=== PATIENT | female | born 1975 | race Caucasian/White ===

== ENCOUNTER 2016-07-04 10:51 | Day surgery (SDC) | payer OTHER ==
[~2016-07-04] VITALS: Ht 149.9 cm; Wt 72.7 kg
[2016-07-04 11:50] LABS: BASOPHILS 0.3 % (0.0-2.0); EOSINOPHILS 3.6 % (0-7); HEMATOCRIT 39.9 % (36.0-48.0); HEMOGLOBIN 13.5 g/dL (12-16); IMMATURE GRANULOCYTES 0.1 % (0-5); LYMPHOCYTES 26.4 % (15-50); MCH 29.6 pg (26.0-34.0); MCHC 33.8 g/dL (31.0-37.0); MCV 87.5 fL (80.0-100.0); MEAN PLATELET VOLUME 9.5 fL (7.4-10.4); MONOCYTES 11.9 % (2-11); NEUTROPHILS 57.7 % (40-80); PLATELET COUNT 233 10x3/uL (130-400); RBC 4.56 10x6/uL (4.00-5.40); RDW 13.3 % (11.5-14.5); WBC 7.5 10x3/uL (4.8-10.8)
[2016-07-04 12:00] LABS: CALC OSMOLALITY 279 mosm/kg (275-300); CARBON DIOXIDE 25.1 mmol/L (21.0-32.0); CHLORIDE - SERUM 103 mmol/L (98-107); CREATININE - SERUM 0.7 mg/dL (0.6-1.3); POTASSIUM - SERUM 4.6 mmol/L (3.5-5.1); SODIUM 138 mmol/L (136-145); UREA NITROGEN 10 mg/dL (7-18); eGFR NON AFRICAN AMERICAN > 90 mL/min (90-120)
[2016-07-04 12:03] LABS: GLUCOSE 181 mg/dL (74-106)
[2016-07-04] MEDS ORDERED: VENTOLIN HFA18 GM INH (12:45)
[2016-07-04] MEDS ORDERED: GLUCOPHAGE500 MG PO (12:47)
[2016-07-04] MEDS ORDERED: PREVACID30 MG PO (12:49)
[2016-07-04 13:02] VITALS: BP 108/80; Ht 149.9 cm; Wt 72.7 kg
[2016-07-04] MEDS ORDERED: OMEPRAZOLE40 MG PO (13:48)
--- NOTE | 2016-07-04 15:20 | NUR ---
DISCHARGE INSTRUCTIONS GIVEN. DR IRENE HAS SEEN. DISCHARGED HOME VIA .
--- NOTE | 2016-07-05 20:05 | OP ---
PATIENT NAME: MODESTA CUENCA MEDICAL RECORD: [id number] :77 LOCATION:[facility] ADMISSION DATE: SURGEON: CHANDANA IRENE MD DATE OF OPERATION: 07/04/2016 PROCEDURE: EGD with biopsy and esophageal balloon dilatation. REFERRING PHYSICIAN: Cadence Dunn MD INDICATIONS: Ms. Cuenca is a very pleasant 40-year-old woman with a history of asthma and diabetes mellitus who has had symptoms of dysphagia to solid foods, heartburn and nausea, which has been present for over several years. She takes pantoprazole 20 mg daily with moderate relief of her symptoms. She presents for outpatient EGD. PREMEDICATIONS: Total IV anesthesia (propofol 250). INSTRUMENT: Esophageal balloon dilator 54-60 Gibraltarian. PROCEDURE AND FINDINGS: After receiving informed consent, Ms. Cuenca' posterior pharynx was anesthetized with Cetacaine spray. She was placed in left lateral decubitus position and sedated as per anesthesia. After achieving an adequate level of sedation, gastroscope was introduced per orally and advanced into the duodenum without difficulty. The esophageal mucosa was without erythema, ulcers, or masses. At the GE junction was a wide open nonobstructive Schatzki's ring. Small sliding type hiatal hernia is present. Gastric mucosa was notable for mild prepyloric and antral erythema and antral biopsies were obtained to rule out Helicobacter pylori. No lesions were seen in the body of the stomach or in the cardia or fundus. Pylorus was patent and competent. In the duodenal bulb, was a superficial ulcer with stigmata of recent bleeding. Second portion of duodenal mucosa was without erythema or ulcers. Biopsies were taken from the second portion of the duodenum to rule out celiac disease. The gastroscope was then withdrawn to the stomach. Esophageal balloon dilator was then introduced through the gastroscope and the balloon was positioned midway across the distal esophagus insulated to a 60-Gibraltarian size, held in place on the appropriate PSI for 60 seconds, then deflated with good results. Balloon was withdrawn and then biopsies were taken from the mid and distal esophagus. Gastroscope was then withdrawn. Ms. Cuenca tolerated the procedure well, no immediate complications. ASSESSMENT: 1. Small sliding type hiatal hernia. 2. Esophageal Schatzki's ring status post esophageal balloon dilatation. 3. Mild gastritis. 4. Small duodenal ulcer. RECOMMENDATIONS: 1. Follow up histopathology. 2. Avoid nonsteroidal anti-inflammatory drugs. 3. Omeprazole 40 mg p.o. daily. 4. Reflux precautions. 5. Colonoscopy as scheduled. TRANSINT:[id number] Voice Confirmation ID: [id number] DOCUMENT ID: [id number] OPERATIVE REPORT [id number] MODESTA CUENCA TERRI MD at 2005 CC: CADENCE DUNN MD [id number] DICTATION DATE: 07/04/16 1347 RECOVERY RN: 07/04/16 1400 [facility] 07/04/16 [id number] [place] [address]
== END 2016-07-04 15:20 | disposition home or self-care (01) ==
LOC: D.OPS 10:51
PROVIDERS: Anesthesiology
DX: R13.10 Dysphagia, unspecified (principal); K21.9 Gastro-esophageal reflux disease without esophagitis; R11.2 Nausea with vomiting, unspecified; F17.200 Nicotine dependence, unspecified, uncomplicated; E11.9 Type 2 diabetes mellitus without complications; J45.909 Unspecified asthma, uncomplicated; K22.2 Esophageal obstruction; K44.9 Diaphragmatic hernia without obstruction or gangrene; K29.70 Gastritis, unspecified, without bleeding; K26.9 Duodenal ulcer, unspecified as acute or chronic, without hemorrhage or perforation

== ENCOUNTER 2016-08-01 10:30 | Day surgery (SDC) | payer OTHER ==
[~2016-08-01] VITALS: Ht 149.9 cm; Wt 72.7 kg
[~2016-08-01 10:30] MED LIST: GLUCOPHAGE500 MG PO; OMEPRAZOLE40 MG PO; PREVACID30 MG PO; VENTOLIN HFA18 GM INH
[2016-08-01 11:42] VITALS: BP 107/79; Ht 149.9 cm; Wt 72.7 kg
[2016-08-01 11:51] LABS: BASOPHILS 0.2 % (0.0-2.0); EOSINOPHILS 2.6 % (0-7); HEMATOCRIT 40.9 % (36.0-48.0); HEMOGLOBIN 13.9 g/dL (12-16); IMMATURE GRANULOCYTES 0.1 % (0-5); LYMPHOCYTES 23.2 % (15-50); MCH 29.8 pg (26.0-34.0); MCV 87.6 fL (80.0-100.0); MEAN PLATELET VOLUME 9.5 fL (7.4-10.4); MONOCYTES 8.4 % (2-11); NEUTROPHILS 65.5 % (40-80); PLATELET COUNT 232 10x3/uL (130-400); RBC 4.67 10x6/uL (4.00-5.40); RDW 12.8 % (11.5-14.5)
[2016-08-01 11:59] LABS: CALC OSMOLALITY 272 mosm/kg (275-300); CALCIUM 8.8 mg/dL (8.5-10.1); CHLORIDE - SERUM 103 mmol/L (98-107); CREATININE - SERUM 0.6 mg/dL (0.6-1.3); GLUCOSE 155 mg/dL (74-106); POTASSIUM - SERUM 4.3 mmol/L (3.5-5.1); SODIUM 136 mmol/L (136-145); UREA NITROGEN 7 mg/dL (7-18); eGFR NON AFRICAN AMERICAN > 90 mL/min (90-120)
--- NOTE | 2016-08-01 15:57 | NUR ---
6522 IV DC WITH CATHER TIP INTACT WAITING ON DR IRENE
--- NOTE | 2016-08-07 13:54 | OP ---
PATIENT NAME: MODESTA CUENCA MEDICAL RECORD: [id number] :77 LOCATION:[facility] ADMISSION DATE: SURGEON: CHANDANA IRENE MD DATE OF OPERATION: 08/01/2016 PROCEDURE: Colonoscopy with ileoscopy, biopsy and polypectomy. REFERRING PHYSICIAN: Foreign Dunn MD. INDICATIONS: Ms. Cuenca is a very pleasant 40-year-old woman who has had symptoms of dysphagia, chronic constipation and right-sided abdominal pain. She had an EGD on 07/04/2016 with finding showing small sliding type hiatal hernia, esophageal Schatzki's ring (dilated up to a 60-Irish), mild gastritis and small duodenal ulcer. Esophageal biopsies showed chronic minimal esophagitis consistent with reflux type injury, antral biopsies were negative for Helicobacter pylori and duodenal biopsies showed mild duodenitis. She had a CT of the chest, abdomen and pelvis with IV contrast on 11/06/2015 that showed no evidence of acute traumatic injury to the chest, abdomen, or pelvis, fatty infiltration of the liver and a 1-cm rounded right upper lobe pulmonary lesion. Repeat CT scan of the abdomen and pelvis without contrast on 02/12/2016 shows status post cholecystectomy, a right adnexal cyst measuring 4.4 cm in diameter and nonvisualization of the appendix with no pericecal inflammation. She presents for outpatient colonoscopy. PREMEDICATIONS: Total IV anesthesia, propofol 400 mg. INSTRUMENT: Olympus video colonoscope. PROCEDURE AND FINDINGS: After receiving informed consent, Ms. Cuenca was placed in left lateral decubitus position and sedated as per anesthesia. After achieving an adequate level of sedation, digital rectal exam was performed that showed no external hemorrhoidal tags, fissures or fistulas, normal sphincter tone, no palpable rectal masses. The colonoscope was introduced per rectally and advanced to the cecum without difficulty. The cecum, IC valve and the appendiceal orifice were identified. Within the cecum was a 0.5-cm sessile polyp removed with hot biopsy forcep technique. The terminal ileum was intubated and the distal small bowel mucosa was without erythema or ulcers. As the colonoscope was withdrawn, careful inspection was made of the darling of the colon. The IC valve and the ascending colonic mucosa was notable for mild patchy erythema and biopsies were taken from the valve in the ascending colon. In the rectum was a diminutive 0.25 cm sessile polyp removed with biopsy forcep technique. Retroflexion in rectum showed no internal hemorrhoids. A good prep was present. Withdrawal time was 10 minutes. Ms. Cuenca tolerated the procedure well, no immediate complications. ASSESSMENT: 1. Normal-appearing terminal ileum. 2. Small cecal polyp status post polypectomy. 3. Minimal nonspecific erythema involving the IC valve and ascending colon, status post biopsy, rule out cholangitis colitis. 4. Diminutive rectal polyp. 5. Right-sided abdominal pain, possibly related to an ovarian cyst. OPERATIVE REPORT [id number] MODESTA CUENCA RECOMMENDATIONS: 1. Follow up histopathology. 2. Avoid aspirin, nonsteroidal anti-inflammatory drugs and FRANK-2 inhibitors 14 days post polypectomy. 3. High fiber diet. 4. MiraLax p.r.n. 5. Stool softeners. 6. Surveillance colonoscopy pending nature of polyp histopathology. 7. Recommend follow up with [employer] regarding her right lower quadrant pain. TRANSINT:[id number] Voice Confirmation ID: [id number] DOCUMENT ID: [id number] CHANDANA IRENE MD at 1354 CC: FOREIGN DUNN MD [id number] DICTATION DATE: 08/01/16 1347 SERVER SOFTWARE ENGINEER: 08/01/16 1827 [facility] 08/01/16 [id number] [place] [address]
== END 2016-08-01 15:30 | disposition home or self-care (01) ==
LOC: D.OPS 10:30
PROVIDERS: Anesthesiology
DX: K63.5 Polyp of colon (principal); K62.1 Rectal polyp; K52.9 Noninfective gastroenteritis and colitis, unspecified; K59.09 Other constipation; K44.9 Diaphragmatic hernia without obstruction or gangrene; K29.70 Gastritis, unspecified, without bleeding; K29.80 Duodenitis without bleeding; K21.0 Gastro-esophageal reflux disease with esophagitis

== ENCOUNTER → 2017-08-19 09:58 | Outpatient (CLI) | payer MEDICAID ==
[2016-08-01 11:42] VITALS: BMI 32.4
== END | disposition home or self-care (01) ==
LOC: D.RAD 08-18 08:00
DX: R10.9 Unspecified abdominal pain (principal); R13.10 Dysphagia, unspecified; R11.0 Nausea; R12 Heartburn

== ENCOUNTER → 2017-10-03 11:57 | Outpatient (CLI) | payer MEDICAID ==
[2016-08-01 11:42] VITALS: BMI 32.4
== END | disposition home or self-care (01) ==
LOC: D.NM 08:30
DX: R10.9 Unspecified abdominal pain (principal); R11.2 Nausea with vomiting, unspecified; E11.9 Type 2 diabetes mellitus without complications

== ENCOUNTER → 2017-10-31 07:58 | Outpatient (CLI) | payer MEDICAID ==
[2016-08-01 11:42] VITALS: BMI 32.4
== END | disposition home or self-care (01) ==
LOC: D.CT 07:58
DX: R10.9 Unspecified abdominal pain (principal); D73.89 Other diseases of spleen

== ENCOUNTER 2018-01-07 08:15 | Outpatient (CLI) | payer MEDICAID ==
[~2018-01-07] VITALS: Ht 149.9 cm; Wt 72.7 kg
[2018-01-07 09:03] LABS: BASOPHILS 0.2 % (0-2); EOSINOPHILS 2.2 % (0-7); HEMOGLOBIN 12.4 g/dL (12-16); IMMATURE GRANULOCYTES 0.1 % (0-5); LYMPHOCYTES 20.9 % (15-50); MCH 28.3 pg (26.0-34.0); MCHC 33.5 g/dL (31.0-37.0); MCV 84.5 fL (80.0-100.0); MEAN PLATELET VOLUME 9.1 fL (7.4-10.4); MONOCYTES 11.1 % (2-11); NEUTROPHILS 65.5 % (40-80); PLATELET COUNT 257 10x3/uL (130-400); RBC 4.38 10x6/uL (4.00-5.40); RDW 13.9 % (11.5-14.5); WBC 8.4 10x3/uL (4.8-10.8)
[2018-01-07 09:09] LABS: APTT 25.7 SECONDS (22.8-39.4); INR 1.11 (0.85-1.17); PROTIME 13.9 SECONDS (11.6-15.0)
[2018-01-07 09:13] LABS: CALC OSMOLALITY 274 mosm/kg (275-300); CALCIUM 8.6 mg/dL (8.5-10.1); CARBON DIOXIDE 25.6 mmol/L (21.0-32.0); CHLORIDE - SERUM 103 mmol/L (98-107); CREATININE - SERUM 0.7 mg/dL (0.6-1.3); GLUCOSE 194 mg/dL (74-106); POTASSIUM - SERUM 3.9 mmol/L (3.5-5.1); SODIUM 136 mmol/L (136-145); UREA NITROGEN 8 mg/dL (7-18); eGFR NON AFRICAN AMERICAN > 90 mL/min (90-120)
[2018-01-07] MEDS ORDERED: ZOLOFT50 MG PO (10:15)
[2018-01-07] MEDS ORDERED: NEURONTIN 300300 MG PO (10:16)
[2018-01-07 10:29] VITALS: BP 111/74; Ht 149.9 cm; Wt 72.7 kg
== END 2018-01-07 16:00 | disposition home or self-care (01) ==
LOC: D.SP 08:15
PROVIDERS: Specialist
DX: K76.0 Fatty (change of) liver, not elsewhere classified (principal); Z01.812 Encounter for preprocedural laboratory examination

== ENCOUNTER → 2019-04-20 12:29 | Outpatient (CLI) | payer MEDICAID ==
[~2019-04-20 12:29] MED LIST changes: +ADVAIR 250/501 DISK INH; +BAYER CHEWABLE81 MG PO; +CLARITIN 10 MG10 MG PO; +CYMBALTA30 MG PO; +FUROSEMIDE20 MG PO; +K-TAB10 MEQ PO; +LIPITOR20 MG PO; +NEURONTIN 300300 MG PO; +PLAVIX75 MG PO; +TOPROL XL50 MG PO; +ZOLOFT50 MG PO
--- NOTE | 2019-04-22 12:49 | ST ---
PATIENT:MODESTA ESTRADA MEDICAL RECORD: [id number] SEX: F LOCATION:[facility] ORDER #: ADMISSION DATE: 04/20/19 AGE OF PATIENT: 43 REFERRING PHYSICIAN: INTERPRETING PHYSICIAN: CAN ROCHE MD DATE OF SERVICE: 04/20/2019 INDICATION: Angina, shortness of breath, COPD. TECHNIQUE: She was exercised on standard Lexiscan protocol with 33 mCi of sestamibi injected at peak stress, 11 mCi used previously for rest images. FINDINGS: Gated SPECT reveals a preserved ejection fraction at 60% with good wall motion and thickening and brightening throughout all segments. SPECT imaging Cardiolite was used as myocardial perfusion agent. There is reversible ischemia inferiorly, apically, and anteriorly. The inferior defect includes the basal, mid, apical segments. This is mild reversibility. The anterior segments includes the basal, mid, apical and anterior segments as well as the apex itself. This is moderate reversibility. The amount of myocardium involved between the 2 defects is quite large. OVERALL IMPRESSION: This is a high risk abnormal nuclear stress test with large amount of myocardium involved with reversible ischemia anteriorly, inferiorly and apically suggestive of multivessel coronary artery disease. TRANSINT:[id number] Voice Confirmation ID: [id number] DOCUMENT ID: [id number] CAN ROCHE MD at 1249 CC: ROSAS GLASGOW [id number] DICTATION DATE: 04/21/19 1626 BRANCH LENDING MANAGER: 04/22/19 0624 [facility] CLI 04/20/19 [id number] [place] [address]
== END | disposition home or self-care (01) ==
LOC: D.HCCARDIO 12:29
PROVIDERS: ATTEND Internal Medicine Interventional Cardiology
DX: I20.9 Angina pectoris, unspecified (principal)

== ENCOUNTER 2019-04-30 09:45 | Outpatient (CLI) | payer MEDICAID ==
[~2019-04-30] VITALS: Ht 149.9 cm; Wt 70.5 kg
--- NOTE | ~2019-04-30 | HEMODYNAMI ---
PATIENT:MODESTA ESTRADA MEDICAL RECORD: [id number] : 77 LOCATION:DRomanCAT ADMISSION DATE: 04/30/19 Generatedon:04/30/201914:19 Patient name: MODESTA ESTRADA Patient #: [id number] SSN: : 1975 Date of study: 04/30/2019 Page: Of Hemodynamic Procedure Report Patient Data Patient Demographics Procedure consent was obtained First Name: MODESTA Gender: Female Last Name: NATALIE : 1975 [facility] Initial: ARELIS Age: 43 year(s) Patient #: [id number] Race: Unknown Additional ID: [id number] Contact details Address: [address] [place] [address] State: [place] City: [place] Zip code: [address] Past Medical History Allergies Allergen Reaction Date Comments Reported Amoxicillin 04/30/2019 Admission Admission Data Admission Date: 04/30/2019 Admission Time: 9:45 Arrival Date: 04/30/2019 Arrival Time: 0:00 Height (in.): 59 BSA: 1.65 (m2) Height (cm.): 149.86 BMI: 31.17 (kg/m2) Weight (lbs.): 154.32 Weight (kg.): 70 Lab Results Lab Result Date: 04/30/2019 Lab Result Time: 0:00 Biochemistry Name Units Result Min Max BUN mg/dl 15 --(--*-)-- 7 18 Creatinine mg/dl 0.8 --(-*--)-- 0.6 1.3 eGFR ml/min 82.89067 -*(----)-- 90 120 NONAFRICAN CBC Name Units Result Min Max Hematocrit % 41.5 -*(----)-- 42 54 Hemoglobin g/dl 14.1 --(*---)-- 13.5 17.5 Procedure Procedure Types Cath Procedure Diagnostic Procedure [facility] w/Coronaries FFR/IVUS FFR Initial FFR Additional Sedation Charges Moderate Sedation up to 15 minutes PCI Procedure Coronary Stent Coronary Stent Initial Coronary Stent Additional Procedure Description Procedure Date Procedure Date: 04/30/2019 Procedure Start Time: 13:48 Procedure End Time: 14:16 Procedure Staff Name Function Gordon Chase MD Performing Physician Nano Small RT Monitor Betty Martinez RT Scrub Randell Campuzano RN Nurse Procedure Data Cath Procedure Fluoroscopy Diagnostic fluoroscopy Total fluoroscopy Time: 8.2 time: 8.2 min min Diagnostic fluoroscopy Total fluoroscopy dose: 433 dose: 433 mGy mGy Contrast Material Contrast Material Type Amount (ml) Isovue 300 115 Entry Location Entry Primary Successful Side Size Upsize Upsize Entry Closure Olivo ccessful Closure Location (Fr) 1 (Fr) 2 (Fr) Remarks Device Remarks Femoral Right 6 Fr Mechanical artery Short Compression Estimated blood loss: 10 ml Diagnostic catheters Device Type Used For End Catheter Placement DIAGNOSTIC [place] 110cm 5 Procedure Fr catheter ([id number]) Procedure Complications No complications Procedure Medications Medication Administration Route Dosage Oxygen etCO2 Nasal cannula 2 l/min Lidocaine 2% added to field 20 Heparin Flush Bag added to field 2 bags (1000units/500ml NS) 0.9% NaCl I.V. 100 ml/hr Versed I.V. 2 mg Fentanyl I.V. 100 mcg Versed I.V. 2 mg Fentanyl I.V. 100 mcg Heparin Bolus I.V. 4000 units Integrilin (Bolus I.V. 6.2 ml 2mg/ml) Plavix P.O. 600 mg Hemodynamics Rest BSA: 1.65 (m2) HGB: 14.1 (g/dl) O2 Consumption: Estimated: 169.42 (ml/min) O2 Co nsumption indexed: Estimated:102.68 (ml/min/m) Heart Rate: 75 (bpm) Snapshots Pre Cath Intra NCS Post Cath Vital Signs Time Heart Resp SPO2 etCO2 NIBP Rhythm Pain Sedation Rate (ipm) (%) (mmHg) (mmHg) Status Level (bpm) 13:39:13 76 20 96 35.5 105/71(90) NSR 0 (11) 10(A) , No pain 13:43:19 75 24 97 37.1 104/74(88) NSR 0 (11) 10(A) , No pain 13:47:25 77 14 96 36.3 109/74(90) NSR 0 (11) 10(A) , No pain 13:51:37 84 17 96 37.8 90/59(79) NSR 0 (11) 9(A) , No pain 13:55:38 85 18 94 38.6 107/65(79) NSR 0 (11) 9(A) , No pain 13:59:45 95 28 96 37.9 99/63(82) NSR 0 (11) 9(A) , No pain 14:03:48 83 18 94 39.3 104/66(76) NSR 0 (11) 9(A) , No pain 14:07:54 82 14 94 39.3 101/67(79) NSR 0 (11) 9(A) , No pain 14:12:00 82 15 94 40.8 106/66(85) NSR 0 (11) 9(A) , No pain 14:16:07 81 19 95 39.3 104/68(84) NSR 0 (11) 10(A) , No pain Medications Time Medication Route Dose Verified Delivered Reason Notes Effectiveness by by 13:38:21 Oxygen etCO2 2 Gordon Buffie used for Nasal l/min Rena Campuzano RN procedure cannula 13:38:31 Lidocaine 2% added 20ml Gordon Gordon for local to vial Rena Chase MD anesthetic field 13:38:37 Heparin Flush added 2 Gordno Gordon used for Bag to bags Rena Chase MD procedure (1000units/500ml field NS) 13:38:46 0.9% NaCl I.V. 100 Gordon Buffie Per physician ml/hr Rena Campuzano RN 13:46:54 Versed I.V. 2 mg Gordon Krausie for sedation Rena Campuzano RN 13:47:00 Fentanyl I.V. 100 Gordon Buffie for sedation mcg Rena Campuzano RN 13:57:11 Versed I.V. 2 mg Gordon Buffie for sedation Rena Campuzano RN 13:57:18 Fentanyl I.V. 100 Gordon Buffie for sedation mcg Rena Campuzano RN 14:01:39 Heparin Bolus I.V. 4000 Gordon Buffie for units Rena Campuzano RN anticoagulation 14:03:49 Integrilin I.V. 6.2 Gordon Krausie for waste d (Bolus 2mg/ml) ml eRna Campuzano RN antiplatelet 3.8 ml therapy of vial 14:15:51 Plavix P.O. 600 Gordon Mejias for mg Rena Campuzano RN antiplatelet therapy Procedure Log Time Note 13:13:47 Informed consent obtained and on chart 13:14:05 Randell Campuzano RN sent for patient. Start room use. 13:14:07 Procedure Status Elective Heart Cath (OP). 13:14:08 Time tracking: Regular hours (M-F 7:00 - 5:00) 13:14:12 Plan of Care:Hemodynamics will remain stable., Cardiac rhythm will remain stable., Comfort level will be maintained., Respiratory function will remain adequate., Patient/ family verbilizes understanding of procedure., Procedure tolerated without complication., Recovers from procedure without complications.. 13:14:21 H&P Date Dictated: 04/14/2019 Within 30 days and on chart., H&P Addendum completed by physician on day of procedure. (MUST COMPLETE FOR ALL OUTPATIENTS). 13:20:59 Patient allergic to Amoxicillin 13:21:55 Patient Weight : 154.32 lbs 13:22:15 Patient Height : 59 inches 13:22:20 Arrival Date: 04/30/2019 12:00:00 AM 13:25:50 ACC Patient presents with Stable Angina CCS Anginal Class 3--Marked limitation of physical activity, angina occurs with ordinary activity.. 13:25:52 ACCPatient has been prescribed/administered the following anti-anginal medication within the last 2 weeks: Beta Stephanie 13:26:19 Patient received from Pre/Post Procedure Room to CCL 1 Alert and oriented. Tansferred to table in Supine position. 13:26:20 Warm blankets applied, and clotilde hugger turned on for patient comfort. 13:26:21 Correct patient and procedure confirmed by team. 13:26:22 ECG and BP/O2 sat monitors applied to patient. 13:26:48 Pre-procedure instructions explained to patient. 13:26:48 Pre-op teaching completed and patient verbalized understanding. 13:26:50 Family in patients room. 13:26:53 Patient NPO since Midnight. 13:26:55 Is the patient allergic to Iodine/contrast media? No. 13:27:03 Is patient on blood thinner?No 13:27:05 Patient diabetic? Yes. 13:27:07 If diabetic: On Metformin? Yes 13:27:13 If on Metformin: Last Dose? 04/28/2019 13:27:16 Patient not . Patient has had tubal. 13:27:22 Previous problem with sedation/anesthesia? No ? 13:27:24 Snore? Yes 13:27:25 Sleep apnea? No 13:27:26 Deviated septum? No 13:27:27 Opens mouth fully? Yes 13:27:28 Sticks out tongue? Yes 13:27:33 Airway obstruction? Yes ASTHMA, COPD 13:27:36 Dentures? No ? 13:38:11 Vital chart was started 13:38:21 Oxygen 2 l/min etCO2 Nasal cannula was administered by Randell Campuzano RN; used for procedure; Verbal order read back and verified. 13:38:31 Lidocaine 2% 20ml vial added to field was administered by Gordon Chase MD; for local anesthetic; Verbal order read back and verified. 13:38:37 Heparin Flush Bag (1000units/500ml NS) 2 bags added to field was administered by Gordon Chase MD; used for procedure; Verbal order read back and verified. 13:38:39 Baseline sample Acquired. 13:38:42 Rhythm: sinus rhythm 13:38:43 Full Disclosure recording started 13:38:46 0.9% NaCl 100 ml/hr I.V. was administered by Randell Campuzano RN; Per physician; Verbal order read back and verified. 13:38:48 Modified Candelario's test Ulnar < 7 seconds 13:38:51 Patient pain scale 0/10 ?. 13:39:09 IV patent on arrival in right antecubital with 0.9% NaCl at [facility]. 13:39:41 Lab Result : BUN 15 mg/dl 13:39:41 Lab Result : Creatinine 0.8 mg/dl 13:39:41 Lab Result : eGFR NONAFRICAN 82.88959 ml/min 13:39:41 Lab Result : Hemoglobin 14.1 g/dl 13:39:41 Lab Result : Hematocrit 41.5 % 13:40:12 Lab results completed and on chart. 13:40:26 Stress Test: yes; abnormal MULTIVESSEL 13:40:32 Risk of Mortality: .2 13:40:35 Risk of blood transfusion: .2 13:40:39 Risk of CYNDEE: .6 13:41:04 Right Radial & Right Groin area was prepped with chlora-prep and draped in sterile fashion 13:41:05 Alarms reviewed by R. N. 13:41:06 Sharps counted by scrub and verified by R.N. 13:41:09 Use device set Radial Dx or PCI 13:41:13 ACIST Syringe (24805) opened to sterile field. 13:41:15 Bag Decanter (2002S) opened to sterile field. 13:41:16 ACIST Hand Control (89193) opened to sterile field. 13:41:16 ACIST Manifold (31260) opened to sterile field. 13:41:16 Tegaderm 4 x 4 (1626W) opened to sterile field. 13:41:21 Medline Cath Pack ([id number]) opened to sterile field. 13:41:23 MBrace Wrist Support ([id number]) opened to sterile field. 13:41:25 EMERALD Guide Wire (776-869) opened to sterile field. 13:41:27 SHEATH 6FR RAIN ([id number]) opened to sterile field. 13:45:51 --------ALL STOP TIME OUT------ 13:45:51 Final Timeout: patient, procedure, and site verified with staff and physician. All members of the team are in agreement. 13:45:54 Right Radial & Right Groin site verified by team. 13:45:57 Fire Safety Assessment: A--An alcohol-based skin anteseptic being used preoperatively., C--Open oxygen or nitrous oxide is being used., D--An ESU, laser, or fiber-optic light is being used. 13:46:00 Physical assessment completed. ASA score P 2 - A patient with mild systemic disease as per Gordon Chase MD. 13:46:03 2) 60-89 Mildly reduced kidney function, and other findings (as for stage 1) point to kidney disease. 13:46:07 Maximum allowable contrast dose (3.7 X eGFR X 0.75)230 ml. 13:46:11 Sedation plan: IV Moderate Sedation Medication:Versed, Fentanyl 13:46:52 Zero performed for pressure channel P1 13:46:54 Versed 2 mg I.V. was administered by Randell Campuzano RN; for sedation; Verbal order read back and verified. 13:47:00 Fentanyl 100 mcg I.V. was administered by Randell Campuzano RN; for sedation; Verbal order read back and verified. 13:48:14 Procedure started. 13:48:23 Local anesthetic to right radial artery with Lidocaine 2% by Gordon Chase MD.INITIAL ACCESS ONLY 13:49:38 A 6 Fr Short sheath was inserted into the Right Femoral artery 13:49:47 A DIAGNOSTIC [place] 110cm 5 Fr catheter ([id number]) was advanced over the wire and used for Procedure. 13:50:22 LV gram done using DAWSON 13:50:25 Injector settings: Ml/sec: 5, Volume: 15, 13:51:04 EF : 55 % 13:51:54 RCA angiography performed. 13:52:11 LCA angiography performed. 13:52:15 Catheter exchanged over wire. 13:52:30 INFLATOR Merit BasixCompak (NF5135) opened to sterile field. 13:52:37 ACCDominant side:Co-Dominant 13:52:59 Ascendant Dxrata Plus pressure wire (85786M) opened to sterile field. 13:53:06 GUIDE 6FR AR 2.0 catheter ([id number]) opened to sterile field. 13:53:20 GUIDE 6FR XBLAD 3.5 catheter ([id number]) opened to sterile field. 13:53:36 6 Fr AR 2 guide catheter was inserted over the wire 13:54:55 FFR/IFR wire advanced. 13:55:05 Wire advanced across lesion. 13:55:46 mRCA lesion measured at .95 with IFR 13:55:57 Wire removed. 13:55:57 Guide catheter removed. 13:56:50 6 Fr XBLAD 3.5 guide catheter was inserted over the wire 13:57:11 Versed 2 mg I.V. was administered by Randell Campuzano RN; for sedation; Verbal order read back and verified. 13:57:18 Fentanyl 100 mcg I.V. was administered by Randell Campuzano RN; for sedation; Verbal order read back and verified. 13:59:22 Guide Catheter removed. unable to cannulate vessel. 13:59:31 GUIDE 6FR EBU 3.0 catheter ([id number]) opened to sterile field. 13:59:45 6 Fr EBU 3 guide catheter was inserted over the wire 14:01:39 Heparin Bolus 4000 units I.V. was administered by Randell Campuzano RN; for anticoagulation; Verbal order read back and verified. 14:03:49 Integrilin (Bolus 2mg/ml) 6.2 ml I.V. was administered by Randell Campuzano RN; for antiplatelet therapy; wasted 3.8 ml of vial Verbal order read back and verified. 14:03:56 FFR/IFR wire advanced. 14:03:59 mLAD lesion measured at .88 with IFR 14:04:09 Pre PCI Site: [place] mLAD has 80% stenosis. 14:04:45 Place stent Inflation Number: 1 A MARIELENA RX 3.0 x 12 stent ([id number]) was prepped and advanced across the Mid LAD . The stent was deployed at 15 CARMEN for 0:00 (min:sec) . 14:05:02 Stent catheter was removed intact over wire. 14:05:03 Wire removed. 14:05:10 CHOICE PT Extra Support 182cm wire ([id number]) opened to sterile field. 14:05:18 CHOICE ES 182 wire advanced. 14:06:28 Wire advanced across DIAG LESION 14:07:28 Pre PCI Site: [place] Diag1 has 90% stenosis. 14:08:22 Inflate balloon Inflation number: 1 A EUPHORA 2.5 x 12 Balloon ([id number]) was prepped and advanced across the 1st Diag , then inflated to 17 CARMEN for 0:00 (min:sec) . 14:08:34 Balloon removed over the wire. 14:10:10 Place stent Inflation Number: 2 A MARIELENA RX 3.0 x 08 stent ([id number]) was prepped and advanced across the 1st Diag . The stent was deployed at 11 CARMEN for 0:00 (min:sec) . 14:10:20 Stent catheter was removed intact over wire. 14:11:04 Wire removed. 14:11:05 Guide catheter removed. 14:11:58 ZEPHYR REGULAR TR BAND (413123) opened to sterile field. 14:12:01 Procedure ended.(Physican Out) 14:12:17 Sheath removed intact; hemostasis achieved with Mechanical Compression to the Right Femoral artery. 14:12:25 Fluoroscopy time 08.20 minutes. 14:12:29 Fluoroscopy dose: 433 mGy 14:12:29 Flurop Dose total: 433 14:12:36 Dose Area Product 83328 mGy/cm. 14:12:48 Contrast amount:Isovue 300 115ml. 14:12:51 Maximum allowable dose exceeded? Yes. 14:12:52 Sharps counted by scrub and verified by R.N. 14:12:55 [place] band inflated with 8cc of air. 14:12:59 Post-procedure physical assessment completed. ASA score P 2 - A patient with mild systemic disease as per Gordon Chase MD. 14:13:04 Post procedure rhythm: sinus rhythm 14:13:06 Estimated blood loss: 10 ml 14:13:11 ACT drawn and resulted at 234 seconds. (normal therapeutic range 180-240 seconds). 14:13:33 Post procedure instruction explained to patient.Patient verbalizes understanding. 14:13:33 Patient needs reinforcement of post procedure teaching. 14:14:20 Procedure type changed to Cath procedure, Diagnostic procedure, C, [facility] w/Coronaries, FFR/IVUS, FFR Initial, FFR Additional, Sedation Charges, Moderate Sedation up to 15 minutes, PCI procedure, Coronary Stent, Coronary Stent Initial, Coronary Stent Additional 14:14:49 Procedure and supply charges have been captured, reviewed, submitted and are correct. 14:14:56 Procedure Complication : No complications 14:14:59 [facility] Findings: MVD- PCI performed (see procedure note) 14:15:01 Operative report dictated upon procedure completion. 14:15:01 See physician's report for complete and final results. 14:15:51 Plavix 600 mg P.O. was administered by Randell Campuzano RN; for antiplatelet therapy; Verbal order read back and verified. 14:16:16 Vital chart was stopped 14:16:20 Report given to Pre/Post Procedure Room. 14:16:25 Patient transfered to Pre/Post Procedure Room with Bed. 14:16:27 Procedure ended. 14:16:27 Full Disclosure recording stopped 14:16:36 ACC-PCI Only Patient was given prescriptions, or instructed by Gordon Chase MD to start/continue the following medications upon discharge: Plavix 14:17:41 End room use (Document Last) 14:19:02 End room use (Document Last) 14:19:25 End room use (Document Last) Intervention Summary Intervention Notes Time ActionType Lesion and Equipment Used Action# Pressure Duration Attributes 14:04:45 Place stent Mid LAD MARIELENA RX 3.0 x 1 15 00:00 12 stent ([id number]) 14:08:22 Inflate 1st Diag EUPHORA 2.5 x 1 17 00:00 balloon 12 Balloon ([id number]) 14:10:10 Place stent 1st Diag MARIELENA RX 3.0 x 2 11 00:00 08 stent ([id number]) Device Usage Item Name Manufacture Quantity Catalog Number Hospital Part Current Minimal Lot# / Charge Number Stock Stock Serial# Code ACIST Syringe Acist 1 27482 795831 382380 569776 20 (91992) Medical Systems Inc Bag Decanter Microtek 1 2001S 282516 54638 074480 5 (2001S) Medical Inc. ACIST Hand Acist 1 28213 230786 456186 313299 5 Control Medical (74158) Systems Inc ACIST Manifold Acist 1 08464 436178 591376 032912 5 (59602) Medical Systems Inc Tegaderm 4 x 4 3M 1 1626W 264071 257239 787875 5 (1626W) Medline Cath Medline 1 [id number] 647707 11451 244744 5 Pack ([id number]) MBrace Wrist Advanced 1 140-0250-00 441490 67787 023442 5 Support Vascular (730493041) Dynamics EMERALD Guide Cardinal 1 502-455 734778 872969 061648 5 Wire (502-455) Health SHEATH 6FR Cardinal 1 5358711 686838 8492419 044071 5 RAIN (3856299) Health DIAGNOSTIC Terumo 1 40-4753 256372 579023 787111 5 [place] 110cm 5 Fr catheter (031075) INFLATOR Merit Merit 1 KY0339 668496 466740 262002 15 Blue [employer] Technologies Medical (YA1232) Durango Durango 1 18331K 312022 054836754 217317 5 Verrata Plus pressure wire (81077L) GUIDE 6FR AR Medtronic 1 [id number] 753512 58185 880789 1 2.0 catheter (TO3FH76) GUIDE 6FR Cardinal 1 38447578 061317 907968 978678 10 XBLAD 3.5 Health catheter (09581276) GUIDE 6FR EBU Medtronic 1 [id number] 935634 38586 870865 0 3.0 catheter (MU5BBQ47) MARIELENA RX 3.0 x Medtronic 1 [id number] 365093 3734445 429376 5 [id number] 12 stent ([id number]) CHOICE PT Purchase 1 [id number] 651178 980599 264903 5 Extra Support Scientific 182cm wire ([id number]) EUPHORA 2.5 x Medtronic 1 [id number] 261045 219299 650293 5 [id number] 12 Balloon ([id number]) MARIELENA RX 3.0 x Medtronic 1 [id number] 159312 5210590 640865 5 [id number] 08 stent ([id number]) ZEPHYR REGULAR Cardinal 1 513276 983308 0911696 003770 5 [facility] (603804) Signature Audit Virgin Stage Time Signature Unsigned Intra-Procedure 04/30/2019 Nano Small 2:19:02 PM RT(R) Intra-Procedure 04/30/2019 Randell Campuzano RN 2:19:25 PM Intra-Procedure 04/30/2019 Gordon Chase 2:19:43 PM [facility] [address] [place] [address]
[~2019-04-30 09:45] MED LIST changes: -ADVAIR 250/501 DISK INH; -BAYER CHEWABLE81 MG PO; -CLARITIN 10 MG10 MG PO; -CYMBALTA30 MG PO; -FUROSEMIDE20 MG PO; -K-TAB10 MEQ PO; -LIPITOR20 MG PO; -PLAVIX75 MG PO; -TOPROL XL50 MG PO
[2019-04-30] MEDS ORDERED: K-TAB10 MEQ PO (10:06)
[2019-04-30] MEDS ORDERED: TOPROL XL50 MG PO (10:06)
[2019-04-30] MEDS ORDERED: FUROSEMIDE20 MG PO (10:07)
[2019-04-30] MEDS ORDERED: ADVAIR 250/501 DISK INH (10:07)
[2019-04-30] MEDS ORDERED: LIPITOR20 MG PO (10:07)
[2019-04-30] MEDS ORDERED: CYMBALTA30 MG PO (10:07)
[2019-04-30] MEDS ORDERED: CLARITIN 10 MG10 MG PO (10:08)
[2019-04-30 10:14] VITALS: BP 111/73; Ht 149.9 cm; Wt 70.5 kg
[2019-04-30 10:29] LABS: HEMATOCRIT 41.5 % (36.0-48.0); HEMOGLOBIN 14.1 g/dL (12-16); LYMPHOCYTES 28.8 % (15-50); MCH 28.5 pg (26.0-34.0); MCV 83.8 fL (80.0-100.0); MEAN PLATELET VOLUME 8.9 fL (7.4-10.4); NEUTROPHILS 65.3 % (40-80); PLATELET COUNT 273 10x3/uL (130-400); RBC 4.95 10x6/uL (4.00-5.40); RDW 13.5 % (11.5-14.5); WBC 8.2 10x3/uL (4.8-10.8)
[2019-04-30 10:50] LABS: ALT (SGPT) 31 U/L (10-68); CALC OSMOLALITY 290 mosm/kg (275-300); CALCIUM 8.8 mg/dL (8.5-10.1); CARBON DIOXIDE 27.9 mmol/L (21.0-32.0); CHLORIDE - SERUM 103 mmol/L (98-107); CHOL - HDL RATIO 3.1 ratio (2.3-4.1); CHOLESTEROL, TOTAL 163 mg/dL (0-200); CREATININE - SERUM 0.8 mg/dL (0.6-1.3); GLUCOSE 226 mg/dL (74-106); HDL CHOLESTEROL 53 mg/dL (32-96); LDL CHOLESTEROL 91 mg/dL (0-100); LDL-HDL RATIO 1.7 ratio (1.5-3.5); POTASSIUM - SERUM 4.2 mmol/L (3.5-5.1); SODIUM 142 mmol/L (136-145); TRIGLYCERIDE 99 mg/dL (30-200); UREA NITROGEN 15 mg/dL (7-18); eGFR NON AFRICAN AMERICAN 83 mL/min (90-120)
--- NOTE | 2019-04-30 14:30 | NUR ---
PATIENT ARRIVED TO ROOM 3, PLACED ON CM. VSS ON 2L NC. RIGHT Z BAND IN PLACE, NO S/S OF BLEEDING OR HEMATOMA. WILL CONTINUE TO MONITOR. FAMILY PRESENT AT BEDSIDE.
[2019-04-30] MEDS ORDERED: BAYER CHEWABLE81 MG PO (14:34)
[2019-04-30] MEDS ORDERED: PLAVIX75 MG PO (14:34)
--- NOTE | 2019-04-30 14:45 | NUR ---
PATIENT RESTING, MOTHER PRESENT AT BEDSIDE. RIGHT Z BAND IN PLACE, NO S/S OF BLEEDING OR HEMATOMA. NO C/O PAIN,NUMBNESS, OR TINGLING. VSS ON 2L NC. NO N/V.
--- NOTE | 2019-04-30 15:15 | NUR ---
PATIENT AWAKE, VSS ON ROOM AIR. RIGHT Z BAND IN PLACE, NO S/S OF BLEEDING OR HEMATOMA. NO C/O PAIN, NUMBNESS, OR TINGLING. HEAD OF BED ELEVATED TO 45 DEGREES. PATIENT EATING SANDWICH AND DRINKING COFFEE PER REQUEST, NO N/V.
--- NOTE | 2019-04-30 15:45 | NUR ---
PATIENT SITTING UP, TOLERATING PO FLUIDS AND FOOD, NO N/V. VSS ON ROOM AIR. RIGHT Z BAND IN PLACE, NO S/S OF BLEEDING OR HEMATOMA. NO C/O PAIN, NUMBNESS, OR TINGLING.
--- NOTE | 2019-04-30 16:15 | NUR ---
PATIENT AWAKE, VSS ON ROOM AIR. RIGHT Z BAND IN PLACE, NO S/S OF BLEEDING OR HEMATOMA. PATIENT C/O PAIN IN RIGHT WRIST RELATED TO PRESSURE, SEE ORDERS. NO N/V. WILL CONTINUE TO MONITOR.
--- NOTE | 2019-04-30 16:45 | NUR ---
PATIENT AWAKE IN BED, MOTHER AT BEDSIDE. VSS ON ROOM AIR. ACETAMINOPHEN GIVEN ORDERED. RIGHT Z BAND IN PLACE, NO S/S OF BLEEDING OR HEMATOMA. NO N/V.
--- NOTE | 2019-04-30 17:15 | NUR ---
4CC OF AIR REMOVED FROM Z BAND PER PROTOCOL, NO S/S OF BLEEDING OR HEMATOMA. PATIENT STATES THAT SHE IS NO LONGER IN PAIN. VSS ON ROOM AIR. NO N/V.
--- NOTE | 2019-04-30 17:45 | NUR ---
REMAINING AIR REMOVED FROM Z BAND, DRESSING APPLIED IS CDI, NO S/S OF BLEEDING OR HEMATOMA. NO C/O PAIN, NUMBNESS, OR TINGLING. VSS ON ROOM AIR.
--- NOTE | 2019-04-30 18:00 | NUR ---
IV REMOVED. PATIENT VOIDED WITHOUT DIFFICULTY. RIGHT RADIAL DRESSING IS CDI, NO S/S OF BLEEDING OR HEMATOMA. WRITTEN AND VERBAL DISCHARGE INSTRUCTIONS GIVEN TO PATIENT AND MOTHER AND MEDICATIONS REVIEWED, BOTH VOICE UNDERSTANDING.
--- NOTE | 2019-04-30 18:20 | NUR ---
PATIENT TRANSPORTED VIA WHEELCHAIR TO CAR WITH MOTHER DRIVING, ALL BELONGINGS WITH PATIENT.
--- NOTE | 2019-05-12 11:17 | OP ---
PATIENT NAME: MODESTA ESTRADA MEDICAL RECORD: [id number] :[birth year] LOCATION:D.CAT ADMISSION DATE: SURGEON: CAN ROCHE MD DATE OF OPERATION: 04/30/2019 PROCEDURES: 1. PTCA stent LAD. 2. PTCA stent LAD diagonal. 3. IFR LAD. 4. IFR RCA. 5. Left heart catheterization. 6. Selective coronary angiography. 7. Left ventriculogram. INDICATION: Angina, coronary artery disease, abnormal nuclear stress test. PROCEDURE IN DETAIL: After informed consent was obtained and after a detailed description of the risks, benefits as well as alternative therapies, the patient elected to proceed with angiogram and angioplasty. The right radial area was prepped and draped in normal sterile fashion. Right radial artery was cannulated via modified Seldinger technique with placement of 6-Maltese sheath. All catheters exchanged through this sheath. FINDINGS: Left ventriculogram was performed in standard 30-degree DAWSON view, reveals good cardiac wall motion throughout all segments. Overall ejection fraction is estimated at 60%. SELECTIVE CORONARY ANGIOGRAPHY: 1. Right coronary has a questionable stenosis in the mid vessel, otherwise regular; however, IFR was normal. 2. The left anterior descending has 70% stenosis in the mid vessel. IFR was abnormal at 0.88. 3. The left circumflex has mild irregularities, but no flow-limiting stenosis. PTCA STENT OF THE LAD: The stent used was a 3.0 x 12 mm [place]. This caused plaque shift into the diagonal causing 90% stenosis of the diagonal. The diagonal was addressed with a 3.0 x 8 mm Wu. Result was 0% residual throughout. OVERALL IMPRESSION: Successful percutaneous transluminal coronary angioplasty stent of the left anterior descending and diagonal going from 70% to 90% initial stenosis to 0% residual. TRANSINT:[id number] Voice Confirmation ID: [id number] DOCUMENT ID: [id number] CAN ROCHE MD at 1117 CC: [id number] DICTATION DATE: 04/30/19 1416 CREATIVE STRATEGIST: 04/30/19 1427 DEP CLI 04/30/19 [place] [address]
--- NOTE | 2019-05-12 11:17 | EC ---
PATIENT:MODESTA ESTRADA DATE OF SERVICE: 04/30/19 SEX: F MEDICAL RECORD: [id number] DATE OF : [birth year] LOCATION:D.CAT AGE OF PATIENT: 43 ADMISSION DATE: 04/30/19 REFERRING PHYSICIAN: INTERPRETING PHYSICIAN: CAN ROCHE MD ECHOCARDIOGRAM REPORT ECHO CHARGES Date: CLINICAL DIAGNOSIS: ECHOCARDIOGRAPHIC MEASUREMENTS (adult normal given) AC root (d.<3.7cm) cm LV Septum d (<1.2 cm> cm Valve Excursion cm LV Septum (systole) cm Left Atria (s.<4.0cm> cm LVPW d(<1.2cm) cm RV (d.<2.3cm) cm LVPW (sytole) cm LV diastole(<5.6CM) cm MV E-F(>70mm/sec) cm LV systole cm LVOT Diameter cm MV exc.(>10mm) cm Est.ejection fraction (50-75%) % DOPPLER: LVIT cm/sec A cm/sec E cm/sec LA cm/sec RVSP mmHg LVOT cm/sec AOP1/2T m/s Asc. Ao cm/sec RVOT cm/sec RA cm/sec PA cm/sec AV Gradient Peak mmHg AV Mean mmHg AV Area cm MV Gradient Peak mmHg MV Mean mmHg MV Area cm COMMENTS: Automotive Warranty Administrator: Men'S Leather Dress Belt Maker: ANIL# Pericardial Effusion DATE OF SERVICE: FINDINGS: 1. Left ventricular chamber size is within normal limits. Left ventricular systolic function is normal at 60% to 65%. 2. Left atrium, right atrium, and right ventricular chamber sizes are within normal limits. 3. Valvular structures have normal structure and motion. 4. Doppler interrogation reveals mild mitral regurgitation, mild tricuspid regurgitation. No other valvular insufficiency or stenosis. Pulmonary systolic ECHOCARDIOGRAM REPORT [id number] MODESTA ESTRADA pressure is normal, estimated at 26 mmHg. 5. No evidence of pericardial effusion or left ventricular thrombus. TRANSINT:[id number] Voice Confirmation ID: [id number] DOCUMENT ID: [id number] CAN ROCHE MD at 1117 CC: [id number] DICTATION DATE: 05/01/19 1106 WAGE CONCILIATOR: 05/01/19 1114 DEP CLI 04/30/[address] [place] [address]
== END 2019-04-30 18:20 ==
LOC: D.CATH 09:45
PROVIDERS: ATTEND Internal Medicine Interventional Cardiology
DX: I25.110 Atherosclerotic heart disease of native coronary artery with unstable angina pectoris (principal); R94.30 Abnormal result of cardiovascular function study, unspecified